=== PATIENT | female | born 1965 | race Caucasian/White ===

== ENCOUNTER 2023-01-11 18:44 | Day surgery (SDC) | payer OTHER ==
[~2023-01-11] VITALS: Ht 170.2 cm; Wt 80.5 kg
--- NOTE | 2023-01-11 19:00 | NUR ---
Pt arrived to Medical Unit. A&Ox4. VSS. Describes intermittent pain on epigastric region. LFA INT is CDI. at bedside. Pt has no other needs or concerns at this time. Belongings and call light are within reach.
--- NOTE | 2023-01-11 20:08 | NUR ---
Pt off the unit to Surgery.
[2023-01-11 20:58] VITALS: BP 133/72; PULSE 87; TEMP 98.2
--- NOTE | 2023-01-11 21:05 | NUR ---
Pt back to medical unit, VSS. A&Ox4. Water offered, and no needs were expressed. No pain or nausea at this time. Pt reports feeling much better, and ready to have something to eat. Will monitor small sips of water and then offer a pudding. at bedside. Belongings and call light are within reach.
[2023-01-11 21:12] VITALS: BP 129/74; PULSE 7
[2023-01-11 21:27] VITALS: BP 125/68; PULSE 73
[2023-01-11 21:42] VITALS: BP 127/70; PULSE 75
--- NOTE | 2023-01-11 22:36 | NUR ---
Pt walked down to the Emergency entrance door at 2220. Pt had some water, ambulated withouth any complications, tolerated small bites of chocolate pudding. LFA peripheral line got discontinued. Tip was intact. accompanied pt. Discharging isntructions given and pt verbalized understanding.
== END 2023-01-11 22:20 | disposition home or self-care (01) ==
LOC: MEDICAL 18:44 → SDCO 18:44 → MEDICAL 18:45 → SDCO 22:20
DX: T18.198A Other foreign object in esophagus causing other injury, initial encounter (principal); K29.30 Chronic superficial gastritis without bleeding; K22.10 Ulcer of esophagus without bleeding; K22.89 Other specified disease of esophagus; K22.2 Esophageal obstruction; E66.9 Obesity, unspecified; Z68.27 Body mass index [BMI] 27.0-27.9, adult
CPT/HCPCS: OP; G0378; J2704